=== PATIENT | female | born 1960 | race Caucasian/White ===

== ENCOUNTER 2019-11-07 12:44 | Emergency (ER) | payer MEDICARE, OTHER ==
[~2019-11-07] VITALS: Ht 165.1 cm; Wt 59.9 kg
[~2019-11-07 12:44] MED LIST: HYDR2TAB35 PO; OXYC-128 PO
--- NOTE | 2019-11-07 14:10 | NUR ---
CAME IN FOR CHRONIC SEVERE BACK PAIN, REQUESTING PAIN MEDICATION. TO ER BED 10, HOOKED TO MONITOR AND POX, CHANGED TO HOSP GOWN, WARM BLANKET PROVIDED, AOx4 , BREATHING EVEN AND UNLABORED, NAD NOTED. AWAITING MD DOOLEY
--- NOTE | 2019-11-07 14:47 | NUR ---
PT REFUESED TO BE SEEN AT THIS TIME. PT REQUESTS TO WAIT IN WAITING ROOM
[2019-11-07 16:03] VITALS: BP 127/84
--- NOTE | 2019-11-07 16:55 | NUR ---
BROOKE CHRIS AT BEDSIDE
--- NOTE | 2019-11-07 17:05 | NUR ---
DR MACDONALD AT BEDSIDE
[2019-11-07] MEDS ORDERED: HYDROCODONE/APAP 10/325MG 1 EA TABLET PO ONE (17:30)
[2019-11-07] MEDS ORDERED: HYDROCODONE/APAP 10/325MG 1 EA TABLET ONE (17:34)
--- NOTE | 2019-11-07 17:41 | NUR ---
Patient expecting to receive 2 Goodhue as what the doctor told her. Clarified with BROOKE Aragon and stated that Pa was supposed to order 2 Goodhue 5-325mg but instead gave her the higher dose which was Goodhue 10-325mg. Patient got mad and walked out of facility.
--- NOTE | 2019-11-07 17:43 | NUR ---
Patient eloped from facility. ER MD and PA notified.
== END 2019-11-07 17:48 | disposition left against medical advice (07) ==
LOC: ER 12:52
DX: M54.9 Dorsalgia, unspecified (principal); G89.29 Other chronic pain; F17.200 Nicotine dependence, unspecified, uncomplicated; Z98.890 Other specified postprocedural states; Z79.899 Other long term (current) drug therapy